=== PATIENT | male | born 1955 | race Asian ===

== ENCOUNTER 2023-01-23 11:49 | Outpatient (CLI) | payer OTHER, SELFPAY ==
--- NOTE | ~2023-01-23 | CT_ITS ---
CT of the Abdomen and Pelvis: Indication: Abdominal pain Technique: 2.5 mm axial scans were obtained through the abdomen and pelvis following intravenous adm inistration of 100 cc of Omnipaque 350. Dose reduction technique was used on this scan by utilizing a utomated exposure control and iterative reconstruction technique. The dose-length product (DLP) was 2 33.18 mGy-cm. Findings: Scans through the lung bases demonstrate 5 mm left basilar pulmonary nodule (axial image 2 3). The liver, spleen, pancreas, gallbladder, adrenals and kidneys are within normal limits. There are at herosclerotic calcifications of the aorta. No lymphadenopathy. No bowel obstruction or bowel wall thickening. There is no evidence to suggest acute appendicitis. Images through the pelvis were performed. Urinary bladder unremarkable. Prostate gland and seminal ve sicles are unremarkable. Impression: No acute abnormalities seen. 5 mm left basilar pulmonary nodule. According to Fleischner Society criteria, for a low-risk patient, no further follow-up required. For a high-risk patient, consider 12 month follow-up CT. Reviewed, dictated and finalized at location . [facility] Impression: No acute abnormalities seen. 5 mm left basilar pulmonary nodule. According to Fleischner Society criteria, f or a low-risk patient, no further follow-up required. For a high-risk patient, consider 12 month follow-up CT.
[2023-01-23 12:06] LABS: Estimated Glomerular Filt Rate > 60
== END 2023-01-23 11:50 | disposition home or self-care (01) ==
LOC: ANHIMG 11:49
PROVIDERS: PCP Family Medicine; Visit Provider Family Medicine
DX: R10.31 Right lower quadrant pain (principal); R91.1 Solitary pulmonary nodule
CPT/HCPCS: 74177; Q9967

== ENCOUNTER 2024-05-21 12:45 | Outpatient (CLI) | payer OTHER, SELFPAY | END 2024-05-21 12:46 | disposition home or self-care (01) | LOC: ANHAUDIO 12:46 | PROVIDERS: PCP Family Medicine; Visit Provider Family Medicine | DX: H90.3 Sensorineural hearing loss, bilateral (principal) | CPT/HCPCS: 92557; 92567 ==